=== PATIENT | female | born 1985 | race Caucasian/White ===

== ENCOUNTER → 2017-02-25 | Outpatient (REF) | payer BC ==
[2017-02-25 20:17] LABS: PROGESTERONE 29.3 NG/ML
[2017-02-25 20:17] LABS: FOLLICLE STIMULATING HORMONE 1.8 mIU/mL; LUTEINIZING HORMONE 5.6 mIU/mL
[2017-02-28 14:09] LABS: DEHYDROEPIANDROSTERONE UNCONJ 492 ng/dL (31-701)
== END ==
LOC: M LAB REF 17:06
DX: N97.9 Female infertility, unspecified (principal)